=== PATIENT | male | born 1985 | race Caucasian/White ===

== ENCOUNTER 2019-08-13 10:24 | Emergency (ER) | payer MEDICAID, OTHER ==
[~2019-08-13] VITALS: Ht 177.8 cm; Wt 113.4 kg
[2019-08-13 10:25] VITALS: BP_SYST 153
--- NOTE | 2019-08-13 10:40 | NUR ---
Patient to ER bed 04 to gown for evaluation. Side rails up.
--- NOTE | 2019-08-13 10:45 | NUR ---
Pt brought by self, A&Ox4, pt presents to ER with suprapubic pain after he had urinary stent recently , also c/o blood clots, afebrile, ambulatory, skin pink and warm, cap refill <3.
--- NOTE | 2019-08-13 10:55 | NUR ---
Dr Solis at bedside examining patient
[2019-08-13] MEDS ORDERED: KETOROLAC TROMETHAMINE 60 MG/2 ML VIAL IM ONE ×2 (11:30→11:45)
[2019-08-13 12:40] LABS: CALCIUM 9.2 mg/dL (8.4-11.0); CREATININE 1.17 mg/dL (0.55-1.30); POTASSIUM 3.9 mmol/L (3.5-5.1)
[2019-08-13 12:45] LABS: INR 1.1 (0.80-1.20); PROTHROMBIN TIME 11.1 SECS (9.5-12.5)
[2019-08-13 12:50] LABS: BASOPHILS # (AUTO) 0.1 K/uL (0.0-0.2); BASOPHILS % (AUTO) 0.7 % (0.0-2.0); EOSINOPHILS # (AUTO) 0.2 K/uL (0.0-0.4); EOSINOPHILS % (AUTO) 2.1 % (0.0-4.0); HEMATOCRIT 54.4 % (36-54); HEMOGLOBIN 18.8 g/dL (14.0-18.0); LYMPHOCYTES % (AUTO) 18.7 % (20.5-51.5); MEAN CORPUSCULAR HEMOGLOBIN 32 pg (27-31); MEAN CORPUSCULAR HGB CONC 35 % (32-36); MEAN CORPUSCULAR VOLUME 92 fL (79.0-98.0); MONOCYTES % (AUTO) 9.7 % (1.7-9.3); NEUTROPHILS # (AUTO) 7.2 K/uL (1.8-7.7); NEUTROPHILS % (AUTO) 68.8 % (40.0-70.0); PLATELET COUNT (AUTO) 209 K/uL (130-430); RED BLOOD CELL COUNT(AUTO) 5.93 MIL/uL (4.2-6.2); RED CELL DISTRIBUTION WIDTH 14.3 % (9.0-15.0); WHITE BLOOD COUNT (AUTO) 10.5 K/uL (4.8-10.8)
[2019-08-13 12:53] LABS: ALBUMIN 4.2 g/dL (3.4-4.8); TOTAL BILIRUBIN 0.8 mg/dL (0.0-1.0)
[2019-08-13] MEDS ORDERED: MORPHINE SULFATE 10 MG/ML VIAL IM ONE (13:00)
[2019-08-13] MEDS ORDERED: ONDANSETRON 4 MG ODT TAB PO ONE (13:00)
[2019-08-13] MEDS ORDERED: NACL 0.9% 1,000 ML IV ONE (13:00)
--- NOTE | 2019-08-13 13:33 | NUR ---
Pt states pain is the same after toradol injection, notified
[2019-08-13 14:04] LABS: BLOOD, URINE 3+ (NEGATIVE); CLARITY/URINE SL CLOUDY (CLEAR); COLOR,URINE RED (YELLOW); GLUCOSE,URINE NEGATIVE (NEGATIVE); KETONES,URINE NEGATIVE (NEGATIVE); LEUKOCYTE ESTERASE ,URINE TRACE (NEGATIVE); NITRITE, URINE POSITIVE (NEGATIVE); PROTEIN URINE 2+ (NEGATIVE); UROBILINOGEN,URINE 0.2 (0.2-1.0)
[2019-08-13 14:09] LABS: BILIRUBIN,URINE NEGATIVE (NEGATIVE)
[2019-08-13 14:11] LABS: BACTERIA,URINE MANY /HPF (None Seen); RBC,URINE >100 /HPF (0-3); WBC,URINE 0-3 /HPF (0-3)
[2019-08-13] MEDS ORDERED: MORPHINE 4 MG/ML INJ. SYRINGE IVP ONE ×2 (14:30→15:15)
[2019-08-13] MEDS ORDERED: cefTRIAXone 1 GM in D5W 50 ML IV ONE (15:15)
--- NOTE | 2019-08-13 15:19 | NUR ---
ACCORDING TO DR CAI, NO NEED FOR BLOOD CULTURES EVEN THOUGH IV ROCEPHIN ORDERED.
[2019-08-13] MEDS ORDERED: cefTRIAXone 1 GM VIAL ONE (15:40)
[2019-08-13 16:04] VITALS: BP_SYST 147
--- NOTE | 2019-08-13 16:05 | NUR ---
Patient given written and verbal discharge instructions and verbalizes understanding. ER MD discussed with patient the results and treatment provided. Patient in stable condition. ID arm band removed. Rx of NORCO, MACRODANTIN given. Patient educated on pain management and to follow up with PMD. Pain Scale 0/10. Opportunity for questions provided and answered. Medication side effect fact sheet provided.
== END 2019-08-13 16:12 | disposition home or self-care (01) ==
LOC: SED 10:24
DX: N23 Unspecified renal colic (principal); N12 Tubulo-interstitial nephritis, not specified as acute or chronic; Z87.442 Personal history of urinary calculi
CPT/HCPCS: 36415; 74176; 80053; 81000; 82150; 83605; 83690; 85025; 85610; 85730; 87086; 96365; 96372; 96375; 96376; 99284; J0696; J1885; J2270 ×2; J7030; Q0162